=== PATIENT | female | born 1980 | race Caucasian/White ===

== ENCOUNTER 2018-02-10 20:48 | Emergency (ER) | payer MEDICAID ==
[~2018-02-10] VITALS: Ht 160 cm; Wt 83.9 kg
[2018-02-10 20:53] VITALS: BP 99/50
[2018-02-10] MEDS ORDERED: KETOROLAC 30 MG/ML VIAL IVP ONE (20:55)
[2018-02-10] MEDS ORDERED: fentaNYL 0.05 MG/ML VIAL IVP ONE (20:55)
[2018-02-10] MEDS ORDERED: HYDROcodone/APAP 5/325 MG 1 TAB TAB PO ONE (21:55)
[2018-02-10 22:37] VITALS: BP 125/59
== END 2018-02-10 22:37 | disposition home or self-care (01) ==
LOC: MED 20:48
DX: S82.392A Other fracture of lower end of left tibia, initial encounter for closed fracture (principal); S82.832A Other fracture of upper and lower end of left fibula, initial encounter for closed fracture; W01.0XXA Fall on same level from slipping, tripping and stumbling without subsequent striking against object, initial encounter; Y93.89 Activity, other specified; Y99.8 Other external cause status; Y92.89 Other specified places as the place of occurrence of the external cause
CPT/HCPCS: 29515; 73590; 73610; 96374; 96375; 99284; J1885; J3010; Q0092